=== PATIENT | male | born 1945 | race Caucasian/White ===

== ENCOUNTER → 2016-08-12 | Outpatient (CLI) | payer BC ==
[~2016-08-12] MED LIST: ATOR-54 PO; CALC12502 PO; CARB200T3 PO; CHOL400C7 PO; FISHOIL PO; MULTTAB58 PO
[2016-08-12 09:43] LABS: BASO % 0.3 %; BASO ABS # 0.02 K/uL (0-0.2); COMPLETE YES; EOS % 2.6 %; HEMATOCRIT 42.5 % (42-52); IG% 0.5 %; LYMPH % 32.3 %; LYMPH ABS # 2.02 K/uL (1.2-3.4); MEAN CORPUSCULAR HEMOGLOBIN 32.7 pg (25-34); MEAN CORPUSCULAR HGB CONC 34.8 g/dl (32-36); MEAN PLATELET VOLUME 10.1 fL (7.4-10.4); MONO % 7.8 %; NEUT % 56.5 %; PLATELET COUNT 191 K/uL (130-400); RED BLOOD COUNT 4.52 M/uL (4.7-6.1); WHITE BLOOD COUNT 6.26 K/uL (4.8-10.8)
[2016-08-12 10:10] LABS: ESTIMATED AVERAGE GLUCOSE 108 mg/dl; HA1C FLAG Normal (Normal)
[2016-08-12 10:16] LABS: ALT/SGPT 37 U/L (12-78); AST/SGOT 14 U/L (15-37); BLOOD UREA NITROGEN 18 mg/dl (7-18); BUN/CREATININE RATIO 12.7 (10-20); CALCIUM 8.8 mg/dl (8.5-10.1); CARBON DIOXIDE 30 mmol/L (21-32); CHLORIDE 107 mmol/L (98-107); GLUCOSE 91 mg/dl (70-99); SODIUM 142 mmol/L (136-145); URIC ACID 7.2 mg/dl (2.6-7.2)
[2016-08-12 10:19] LABS: CHOLESTEROL 159 mg/dl (0-200); HDL CHOLESTEROL 40 mg/dl; LDL CHOLESTEROL CALCULATED 82 mg/dl; TRIGLYCERIDES 185 mg/dl (0-150); VERY LOW DENSITY LIPOPROT CALC 37 mg/dl
== END | disposition home or self-care (01) ==
LOC: C.LAB1850 08:07
PROVIDERS: ATTEND Internal Medicine
DX: M10.9 Gout, unspecified (principal); R73.9 Hyperglycemia, unspecified; G35 Multiple sclerosis; E78.5 Hyperlipidemia, unspecified

== ENCOUNTER → 2017-07-18 | Outpatient (CLI) | payer BC ==
--- NOTE | 2017-07-18 12:27 | DIAGNOSTIC IMAGING REPORT ---
VIDEO SWALLOW HISTORY: Dysphagia G35 TECHNIQUE: Video fluoroscopic evaluation of swallowing was performed in the AP and lateral projections by the speech pathology staff. The patient is fed nectar-thick and thin liquid barium, a barium coated wafer, and barium pudding. FLUOROSCOPY TIME: 1.9 minutes. COMPARISON STUDY: None. FINDINGS: There is normal hyoid excursion and epiglottic deflection. No significant penetration or aspiration identified. Swallowing function is within normal limits. Moderate delay in initiation of the swallowing function. IMPRESSION: 1. No aspiration identified. 2. Please see the speech pathologist report for detailed findings and recommendations. The above report was generated using voice recognition software. It may contain grammatical, syntax or spelling errors. Electronically signed by: Sarthak Pruitt M.D. 07/18/2017 12:26 PM Dictated Date/Time: 07/18/2017 12:25 PM
--- NOTE | 2017-07-18 14:18 | SWALLOWING EVALUATION ---
HISTORY: This 72 year old man was referred for a video swallow study at [facility] in order to rule out aspiration and identify the safest consistencies for optimal oral intake. Patient reports he has episodes of coughing while eating/drinking food. He reports they do not occur all of the time, but when it happens, the coughing episode may last up to 5 minutes. PMH is significant for: Multiple Sclerosis, gastroparesis, and GERD. Current diet is regular. PROCEDURE: The patient was seen in the Radiology Department of [facility] for the VFSS. Cursory examination of the oral cavity revealed the patient to have upper and lower dentition in good condition. Movement of the articulators was mildly weak as evidenced by very mild dysarthria of speech. ROM was wnl. The patient was seated upright on a stool and was viewed in both the Anterior-Posterior (A-P) and Lateral planes. Volitional phonation exercises completed in the A-P plane revealed bilateral vocal fold movement. Vocal intensity was wnl. In the lateral plane, the patient was given the following boluses: 1 tsp. thin liquid barium x 2, single swallow thin liquid barium self-presented from a cup, sequential swallows of thin liquid barium self-presented from a straw, 1 tsp. nectar-thick liquid barium, single swallow nectar-thick liquid barium self-presented from a cup, 1 tsp. barium pudding, and 1 club cracker coated in barium pudding. The patient was then repositioned into the A-P plane and given the following boluses: 1 tsp. nectar thick barium and 1 tsp. barium pudding. RESULTS: Oral Stage: Lip closure was adequate. The patient was able to maintain a cohesive liquid bolus in the oral cavity during the liquid bolus hold task. Mastication was mildly slow. Lingual motion for bolus transport was also noted to be slow. There was retention lining the tongue and palate after the initial swallow. The initiation of the pharyngeal swallow was delayed occurred when the bolus head reached the pyriforms. Pharyngeal Stage: Soft palate elevation was complete. Laryngeal elevation revealed partial superior movement of the thyroid cartilage and partial approximation of the arytenoids to the epiglottic base. Anterior hyoid excursion was partially reduced and epiglottic deflection was complete. Laryngeal vestibular closure was complete. The pharyngeal stripping wave was present yet diminished. Pharyngeal contraction was complete. There was complete distention and duration of the opening to the pharyngoesophageal segment (PES). Tongue base retraction was partially reduced with a narrow column of contrast located between the tongue base and pharyngeal wall during the swallow. There was retention located in the valleculae and pyriforms after the swallow. There was evidence of minimal laryngeal penetration with thin liquids, otherwise there was no evidence for aspiration during this study. Mild retention that remained in the valleculae with solids cleared with a second swallow. No other difficulty identified. Esophageal stage: There was complete esophageal clearance. SUMMARY/RECOMMENDATIONS: This patient presents with mild mumtaz-pharyngeal dysphagia. The following is recommended: 1. Regular diet, thin liquids. 2. Aspiration precautions. Straws OK. Fully upright for meals and for 30 minutes after meals. Do not lay flat, elevate head of the bed to at least 30 degrees at all time, to include while sleeping (due to known GERD). 3. Safe swallow strategies: Alternate solids and liquids. Double swallow as needed with solids. A summary of the results and recommendations was discussed with the patient and his spouse (with his permission) with verbal understanding. Thank you for referral of this patient. Please contact me at if any additional information is needed.
== END | disposition home or self-care (01) ==
LOC: C.RAD 11:13
PROVIDERS: ATTEND Psychiatry & Neurology Neurology
DX: G35 Multiple sclerosis (principal)

== ENCOUNTER → 2017-08-17 | Outpatient (CLI) | payer BC ==
--- NOTE | 2017-08-17 12:35 | DIAGNOSTIC IMAGING REPORT ---
TWO VIEW CHEST CLINICAL HISTORY: Cough. FINDINGS: PA and lateral chest radiographs are obtained. No prior studies are available for comparison at the time of dictation. The PA view is degraded by patient rotation. The heart is top normal for projection. The pulmonary vasculature is noncongested. Nonspecific interstitial thickening is likely chronic. Bibasilar opacities likely represent atelectasis. The lungs are otherwise clear. No pleural effusion or pneumothorax is seen. The skeletal structures are osteopenic. The bony thorax appears intact. IMPRESSION: Bibasilar opacities likely represent atelectasis. Clinical correlation will be required. Electronically signed by: Rock Driver M.D. 08/17/2017 12:33 PM Dictated Date/Time: 08/17/2017 12:32 PM
[2017-08-17 12:44] LABS: HEMOGLOBIN A1C 5.4 % (4.5-5.6)
[2017-08-17 12:56] LABS: ALT/SGPT 29 U/L (12-78); AST/SGOT 18 U/L (15-37); BLOOD UREA NITROGEN 13 mg/dl (7-18); CALCIUM 8.7 mg/dl (8.5-10.1); CARBON DIOXIDE 26 mmol/L (21-32); CREATININE 1.28 mg/dl (0.60-1.40); GLUCOSE 97 mg/dl (70-99); POTASSIUM 3.9 mmol/L (3.5-5.1); SODIUM 138 mmol/L (136-145)
[2017-08-17 12:59] LABS: CHOLESTEROL 170 mg/dl (0-200); LDL CHOLESTEROL CALCULATED 91 mg/dl
--- NOTE | 2017-08-17 13:05 | DIAGNOSTIC IMAGING REPORT ---
CERVICAL SPINE 3 VIEWS CLINICAL HISTORY: Neck pain. FINDINGS: AP, lateral, and odontoid views of the cervical spine are correlated with CT scan of cervical spine dated 02/19/2012. The skeletal structures are osteopenic. There is no radiographic evidence of fracture or subluxation. Vertebral body height and alignment are maintained throughout the cervical spine. There is straightening of the cervical lordosis. Near complete bony fusion is seen at C5-C6. Anterior osteophytes are seen throughout. The spinous processes appear intact. The odontoid process and lateral masses appear intact as seen on the open-mouth view. The atlantodental articulation is grossly maintained noting productive degenerative change. Advanced disc space narrowing is seen at C3-C4, C5-C6, and C6-C7. Moderate to advanced disc space narrowing is seen at the remaining cervical levels. Posterior disc osteophyte complexes at C2-C3, C3-C4, C4-C5, and C6-C7 likely contribute to multilevel acquired compromise of the central canal. The prevertebral soft tissues are within normal limits. Partially imaged apical lung parenchyma is grossly clear. IMPRESSION: 1. No acute bony abnormality is identified involving the cervical spine. 2. Osteopenia and spondylotic change as above. Dictated: 08/17/2017 12:33 PM Transcribed: 08/17/2017 1:05 PM [facility] Electronically signed by: Rock Driver M.D. 08/17/2017 1:07 PM Dictated Date/Time: 08/17/2017 12:33 PM
== END | disposition home or self-care (01) ==
LOC: C.RAD1850 11:07
PROVIDERS: ATTEND Internal Medicine
DX: R05 Cough (principal); R73.9 Hyperglycemia, unspecified; E78.5 Hyperlipidemia, unspecified

== ENCOUNTER 2023-08-30 08:49 | Observation (INO) ==
--- NOTE | 2023-08-15 12:19 | PAT Medication Instructions ---
Medication Instructions Date of Service August 15, 2023 Home Medications Medication Instructions Recorded meloxicam 7.5 mg tablet 7.5 mg PO DAILY PRN gout #30 tabs 09/09/21 indomethacin 25 mg capsule 25 mg PO TID PRN gout #20 caps 09/14/21 betamethasone dipropionate 0.05 % 1 applic topical BID PRN skin 12/16/22 topical cream irritation #135 grams fluocinonide 0.1 % topical cream 1 applic topical BID #120 grams 04/14/23 atorvastatin 20 mg tablet 20 mg PO HS #90 tabs 06/05/23 meloxicam 7.5 mg tablet 7.5 mg PO DAILY PRN indomethacin 25 mg capsule 25 mg PO TID PRN betamethasone dipropionate 0.05 % topical cream 1 applic topical BID PRN fluocinonide 0.1 % topical cream 1 applic topical BID atorvastatin 20 mg tablet 20 mg PO HS carbamazepine 200 mg tablet (Tegretol) 200 mg PO QID cholecalciferol (vitamin D3) 125 mcg (5,000 unit) tablet (Vitamin D3) 125 mcg PO QAM cyanocobalamin (vitamin B-12) 1,000 mcg tablet (Vitamin B-12) 1,000 mcg PO QAM lutein 20 mg capsule 20 mg PO QAM ASK your surgeon for instructions meloxicam 7.5 mg tablet 7.5 mg PO DAILY PRN indomethacin 25 mg capsule 25 mg PO TID PRN STOP taking 2 weeks before surgery (or as soon as possible if surgery is within 2 weeks) lutein 20 mg capsule 20 mg PO QAM STOP taking 24 hours before surgery betamethasone dipropionate 0.05 % topical cream 1 applic topical BID PRN fluocinonide 0.1 % topical cream 1 applic topical BID DO NOT take the morning of surgery cholecalciferol (vitamin D3) 125 mcg (5,000 unit) tablet (Vitamin D3) 125 mcg PO QAM cyanocobalamin (vitamin B-12) 1,000 mcg tablet Take morning of surgery With a small sip of water, OTHERWISE NOTHING TO EAT OR DRINK AFTER MIDNIGHT: carbamazepine 200 mg tablet (Tegretol) 200 mg PO QID Take evening before surgery atorvastatin 20 mg tablet 20 mg PO HS carbamazepine 200 mg tablet (Tegretol) 200 mg PO QID Other Notes If you have any questions please call us at [phone] or [phone] or [phone] or [phone]
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
[~2023-08-30 08:49] MED LIST changes: -ATOR-54 PO; -CALC12502 PO; -CARB200T3 PO; -CHOL400C7 PO; -FISHOIL PO; -MULTTAB58 PO; +ROPIVACAINE 0.5% 5 MG/ML 30 ML VIAL ONE
--- NOTE | 2023-08-30 08:55 | History & Physical Bridge Note ---
Date of Service August 30, 2023 History & Physical Bridge Note I have examined the patient, reviewed the History & Physical and in the interval since the performance of the History & Physical I have noted the following changes of clinical significance: no changes noted
[2023-08-30] MEDS: ACETAMINOPHEN 500 MG TAB PO SCH ×2 (09:49→14:44)
[2023-08-30] MEDS: METOCLOPRAMIDE HCL 10 MG TABLET PO SCH (09:49)
[2023-08-30] MEDS: FAMOTIDINE 20 MG TAB PO SCH (09:49)
[2023-08-30] MEDS: CeleBREX 200 MG CAP PO SCH (09:49)
[2023-08-30] MEDS: dexAMETHasone**PF** 10 MG/ML VIAL IV SCH (09:50)
[2023-08-30] MEDS: LR 60ML/HR IV SCH (09:50)
[2023-08-30] MEDS: LR 15ML/HR IV SCH (09:50)
[2023-08-30] MEDS ORDERED: ONDANSETRON INJ 2 MG/ML 2 ML VIAL IV PRN ×2 (10:06→14:19)
[2023-08-30] MEDS ORDERED: ePHEDrine sulfate 50 MG/ML AMP IV PRN (10:06)
[2023-08-30] MEDS ORDERED: ATROPINE SULFATE 0.1 MG/ML 10ML SYR IV PRN (10:06)
[2023-08-30] MEDS ORDERED: MIDAZOLAM HCL 1 MG/ML 2ML VIAL ONE (10:17)
[2023-08-30] MEDS ORDERED: fentaNYL citrate PF 100 MCG/2 ML VIAL ONE ×2 (10:17→12:01)
[2023-08-30] MEDS ORDERED: PROPOFOL IV EMULSION 10 MG/ML 20 ML VIAL IV ONE (10:34)
[2023-08-30] MEDS ORDERED: ONDANSETRON INJ 2 MG/ML 2 ML VIAL ONE (10:34)
[2023-08-30] MEDS: ceFAZolin 2000MG 2,000 MG/15 ML SYR IV SCH ×2 (11:15→17:45)
[2023-08-30] MEDS ORDERED: ROCURONIUM BROMIDE 10 MG/ML 5 ML VIAL IV ONE (11:27)
[2023-08-30] MEDS: ROPIV 0.5% 246mg, Ketorolac 30mg, EPINEPHrine 0.5mg in NSS INFIL SCH (12:21)
[2023-08-30] MEDS: TRANEXAMIC ACID 1,000 MG **IV Intra-op IV SCH (12:22)
[2023-08-30] MEDS ORDERED: SUGAMMADEX SODIUM 200 MG/2 ML VIAL IV ONE (12:52)
--- NOTE | 2023-08-30 13:04 | Operative Report ---
[facility] Post Operative Report Pre & Post Diagnosis Operation Date: 08/30/23 10:40 Pre-Op Diagnosis: Left Knee Degenerative Joint Disease Post-Op Diagnosis: Left Knee Degenerative Joint Disease I identified the patient and participated in the time-out.: Yes Procedure Operation Date: 08/30/23 10:40 Actual Procedures p Left Total Knee Arthroplasty(Left) - Ming Chahal MD Surgeon Ming Chahal MD Hand Ii Blocker Candelario Palafox PA-C Estimated Blood Loss 50 Findings Consistent with Post-Op Diagnosis Operative findings revealed advanced grade 4 [id number] disease of the entire lateral compartment with eburnation of the lateral femoral condyle lateral to plateau. Moderate sized joint effusion. Valgus deformity to his knee. He did have some grade 4 changes body in the medial and patellofemoral compartments. Specimens Left knee sent for pathology. 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 Over the years things have gradually progressed. X-rays show progressive arthritis. He has been through extensive conservative treatment occluding injections and therapy without adequate relief. He elected proceed with total knee arthroplasty. I did explain to him that the results of this procedure in someone with his MS will be less predictable and he is fully aware that. Description of Procedure Operative implants consists of: 1 Biomet Vanguard size 67.5 left posterior stabilized femoral component. 2. Biomet size 75 tibial tray. 3. 10 mm PS plus insert. 4. 31 x 8 all poly patella. The patient was taken the op room, identified, placed on the operating table in the supine position. All contact areas were appropriately padded. IV antibiotics by anesthesia team. A adductor canal block had provided in the holding area. A general anesthetic was implemented due to his history of MS. ALS lactate was then placed. Left lower extremities then prepped and draped in usual sterile fashion. The left leg was elevated exsanguinated with use of an Esmarch and a turn was placed at 300 mmHg. An anterior approach to the left knee was then performed to longitudinal incision centered over the patella. Sharp dissection Through subcutaneous tissue down to the extensor mechanism. A medial parapatellar arthrotomy incision was made. Some subperiosteal dissection was carried out medially. The fat pad was dissected from the patella tendon. A lateral patellofemoral ligament was released. Patella subluxated laterally and the knee was flexed. The osteophytes taken distal femur. The ACL PCL were then released from the distal femur and the tibia subluxated anteriorly. The external tibial alignment jig was then placed in the anterior face of the tibia and adjusted 12 mm medially. Proximal tibial cut was made to move out to 2 mm of bone from the medial side. The tibia sized to a size 75. Attention drawn the femur. The distal femur therapy with a sharp drill. Intramedullary canal was suction. A left 5 degree valgus cutting guide was placed for the distal femoral cutting block was pinned in place. Distal femoral cut was made to take an additional 3 mm of distal femur. The femur was then sized to a size 67.5. The AP cutting block was pinned parallel to the epicondylar axis which is 5 degrees of external rotation. Anterior cut, anterior chamfer, posterior, posterior chamfer cuts were made. The box cutting guide was placed and just light box cut was made. The knee was flexed. The remnants of the medial and lateral menisci were excised. The osteophytes were taken off the posterior aspect of the femur. A trial femoral component was placed. The tibial tray was pinned in maximum external rotation and the joint standpoint use great defect in the proximal tibia for the tibial tray. The knee was then trialed and the 10 mm insert fit most appropriately. He there was just a slight bit of laxity in extension so I elected to use a PS plus insert due to his complaints of instability preoperatively. Attention drawn the patella. The patella was cleared of all soft tissue. Patella thickness measured 23 mm in thickness was cut down to 14. Was sized to a size 31 patella. The lug holes were drilled for 31 patella. The lateral osteophytes removed. Patella button was placed. Knee was taken through range of motion patella tracked nicely with no thumbs test. Attention turned to placing the permanent components. All trial components were removed. Bone plug was placed in the distal femur limit blood loss. A double batch of Palacos G cement was mixed. BiomMovidiusguard size 67.5 left posterior by femoral component, size 75 tibial tray, a 10 mm PS plus insert, and a 31 x 8 all poly patella then cemented in place. The knee was brought out into full extension until cement hardened. Final symmetric exam performed. The pericapsular tissues were injected with a total of 100 cc of orthopedic joint mixed. The patient did receive 1 g of tranexamic acid. The tourniquet was then let down for final tourniquet time of 59 minutes. Hemostasis assured with electrocautery. The extensor mechanism then closed the combination of 1 PDS suture and a 1 Vicryl suture in a [id number] fashion. The extensor mechanism checked found to be intact and subcutaneous tissue was then closed with 2 Dexon suture buried fashion skin was closed skin doe. Leg was then cleaned and dried a sterile dressing with Xeroform, 4 fours, sterile cast padding, Darell bandage were applied. The patient was then transferred to the recovery room in stable condition. The patient tolerated the procedure well and there were no complications. Candelario Palafox, my physician speech pathology assistant, was present for the entire procedure. His assistance was essential and required for appropriate patient positioning, prepping and draping, surgical exposure, performing the technical details of the operation, placement the implants, closure of the wound, and placement of the sterile bandage. I attest to the content of the Intraoperative Record and any orders documented therein. Any exceptions are noted below.
[2023-08-30] MEDS: fentaNYL citrate PF 100 MCG/2 ML VIAL IV PRN (13:18)
[2023-08-30] MEDS: HYDROmorphone INJ 1 MG/ML SYRINGE IV PRN (13:28)
--- NOTE | 2023-08-30 13:36 | XRay Report ---
XR knee LT 1 or 2V routine CLINICAL HISTORY: Postoperative evaluation. COMPARISON: Left knee radiographs May 30, 2023. FINDINGS: Alignment of the total left knee arthroplasty is anatomic. There is no periprosthetic frac ture or unexpected radiopaque foreign body. There are skin doe. IMPRESSION: Expected findings following total left knee arthroplasty. ACT 112: Negative or not required by law. Electronically signed by: Damien Bishop M.D. 08/30/2023 1:35 PM
--- NOTE | 2023-08-30 13:56 | Anesthesiology Progress Note ---
Date of Service August 30, 2023 Anesthesia Post Procedure Vital Signs Vital Signs: Temp Pulse Pulse Resp BP BP Pulse Ox 08/30/23 13:45 81 18 160/82 H 94 08/30/23 13:35 78 18 164/74 H 94 08/30/23 13:25 74 16 171/80 H 95 08/30/23 13:15 76 20 164/76 H 96 08/30/23 13:05 36.1 C L 79 20 174/84 H 96 08/30/23 09:20 36.7 C 68 20 180/93 H 96 O2 Del Method O2 Flow Rate 08/30/23 13:45 Nasal Cannula 2 08/30/23 13:35 Oxymask 4 08/30/23 13:25 Oxymask 4 08/30/23 13:15 Oxymask 4 08/30/23 13:05 Oxymask 6 08/30/23 09:20 Room Air Pain Intensity Left Knee: Pain Intensity: 5 Transfer of Care Handoff Completed per policy Notes Mental Status: alert / awake / arousable and participated in evaluation Patient Amnestic to Procedure: Yes Nausea / Vomiting: adequately controlled Pain: adequately controlled Airway Patency, RR, SpO2: stable & adequate BP & HR: stable & adequate Hydration State: stable & adequate Anesthetic Complications: no major complications apparent and Pt Satisfied with anesthetic care
[2023-08-30] MEDS ORDERED: METOCLOPRAMIDE HCL INJ 5 MG/ML 2 ML VIAL IV PRN (14:19)
[2023-08-30] MEDS ORDERED: MAGNESIUM HYDROXIDE SUSP 30 ML UDC PO PRN (14:19)
[2023-08-30] MEDS ORDERED: TAMSULOSIN HCL 0.4 MG CAP PO PRN (14:19)
[2023-08-30] MEDS ORDERED: ALUMINUM/MAGNESIUM SUSP 30 ML UDC PO PRN (14:19)
[2023-08-30] MEDS ORDERED: NALOXONE HCL 0.4 MG/1 ML VIAL/CARP IV PRN (14:19)
[2023-08-30] MEDS ORDERED: HYDROmorphone INJ 0.5 MG/0.5 ML SYR IV PRN (14:19)
[2023-08-30] MEDS ORDERED: bisacodyL 10 MG SUPP PR PRN (14:19)
[2023-08-30] MEDS: ORTHO JOINT ANESTHETIC ONE (14:32)
[2023-08-30] MEDS ORDERED: TRIAMCINOLONE ACET 0.5% CR 15 GM TUBE EXT PRN (14:38)
[2023-08-30] MEDS: SODIUM CHLORIDE 0.9% 1,000 ML IV SCH (14:42)
[2023-08-30] MEDS: KETOROLAC TROMETHAMINE 15 MG/ML VIAL IV SCH (14:44)
[2023-08-30] MEDS: carBAMazepine 200 MG TABLET PO SCH ×2 (15:20→20:47)
[2023-08-30] MEDS ORDERED: Nursing to Pharmacy Communication SCH (16:00)
[2023-08-30] MEDS: ASCORBIC ACID 500 MG TAB PO SCH (16:12)
[2023-08-30] MEDS: TRANEXAMIC ACID / 0.7% NACL 1,000 MG/100 ML BAG IV SCH (17:45)
[2023-08-30] MEDS: SENNA 8.6 MG TAB PO SCH (20:45)
[2023-08-30] MEDS: ATORVASTATIN 20 MG TAB PO SCH (20:45)
[2023-08-30] MEDS: CLOBETASOL PROPIONATE 0.05% CREAM 15 GM TUBE EXT SCH (20:46)
[2023-08-30] MEDS: DOCUSATE SODIUM 100 MG CAP PO SCH (20:47)
[2023-08-30] MEDS: ASPIRIN 81 MG ECTAB PO SCH (20:47)
[2023-08-31 06:35] LABS: Hematocrit (blood only) 32.4 % (42.0-52.0); Hemoglobin 10.7 g/dl (14.0-18.0); Mean Corpuscular Hemoglobin 31.3 pg (25.0-34.0); Mean Corpuscular Volume 94.7 fL (80.0-100.0); Mean Platelet Volume 9.8 fL (9.4-12.4); Platelet Count 191 K/uL (130-400); RDW Coefficient of Variation 13.4 % (11.5-14.5); RDW Standard Deviation 46.8 fL (36.4-46.3); Red Blood Count 3.42 M/uL (4.70-6.10); White Blood Count 10.28 K/ul (4.8-10.8)
[2023-08-31 07:01] LABS: Calcium 8.6 mg/dl (8.6-10.3); Creatinine Clr Calc Pharmacy 52.1 ml/min; Est GFR (African American) 63.5 ml/min; Est GFR (Non-African American) 54.8 ml/min; Potassium 3.8 mmol/L (3.5-5.1)
[2023-08-31] MEDS: oxyCODONE HCL IR 5 MG TAB (IMMEDIATE RELEASE) PO PRN (08:08)
[2023-08-31] MEDS: CHOLECALCIFEROL 125 MCG (5,000 UNITS) TAB PO SCH (08:09)
[2023-08-31] MEDS: MULTIVITAMIN TAB PO SCH (08:10)
[2023-08-31] MEDS: dexAMETHasone 10 MG in SYRINGE 0 ML IV SCH (08:12)
[2023-08-31] MEDS ORDERED: NON-FORMULARY MEDICATION (Lutein 20 mg Capsule) PO SCH (09:00)
--- NOTE | 2023-08-31 10:50 | Orthopedic Progress Note ---
Date of Service August 31, 2023 Assessment & Plan (1) Status post left knee replacement: Overall, he is doing quite well today with good pain control to the left knee. He participated well this morning with physical therapy work on ambulation and range of motion exercises. He is on aspirin for DVT prophylaxis. He can be discharged later this morning pending formal physical therapy evaluation recommendations. He is currently a resident at [facility] and notes that he is going to return there upon discharge within house PT/OT. Case management is currently on board of trying to get him out of here today. He is orthopedically stable for discharge once confirmation is obtained that [facility] is able to accept him back today. He will follow-up with Dr. Chahal in 2 weeks for postoperative management. Subjective . Yoshi was seen and evaluated this morning resting comfortably in no apparent distress. He notes that his pain is well-controlled to the left knee today. He notes that he just finished with physical therapy and was able to do ambulation and range of motion exercises with him. He notes that he has been up and out of bed with no significant issues. He denies any other concerns today. Review of Systems All systems reviewed & are unremarkable except as noted in HPI & below. Physical Exam . On physical examination of the left knee, dressings are clean, dry, intact. His leg is out in full extension. He has active plantarflexion dorsiflexion of the left ankle. +2 DP and PT pulses. Less than 2-second capillary refill. Normal sensation. Neurovascular intact. Results & Data Results & Data Laboratory Results . Diagnostic Findings . Postoperative x-rays of the left knee show prosthesis to be in anatomical alignment with no signs of fracture complication or loosening. PG Care Time/CCT Total # of Minutes Spent Total Time Spent with Patient: Total time spent is greater than 50% in coordination of care (as documented) at patient's floor/unit and/or counseling patient: Coding Level of Care Code 58050 Post Operative Follow-Up Diagnoses Status post left knee replacement Z96.652
--- NOTE | 2023-08-31 10:52 | Discharge Summary ---
Date of Service August 31, 2023 Principal Diagnosis Same as "Discharge Diagnosis" noted below under Discharge Instructions. Discharge Exam . On physical examination of the left knee, dressings are clean, dry, intact. His leg is out in full extension. He has active plantarflexion dorsiflexion of the left ankle. +2 DP and PT pulses. Less than 2-second capillary refill. Normal sensation. Neurovascular intact. Discharge Data Procedures Performed Operation Date: 08/30/23 10:40 Actual Procedures p Left Total Knee Arthroplasty(Left) - Mnig Chahal MD Ordered Studies 08/30/23 05:00 US - OR guided needle placemen Routine Hospital Course (1) Status post left knee replacement: On August 30, 2023 Yoshi arrived at [facility] underwent a left total knee arthroplasty performed by Dr. Chahal with no complications. He had a general anesthetic. Postoperatively, he was started on aspirin for DVT prophylaxis and transferred to the general orthopedic floor in stable condition. His hospital course was uneventful. On postoperative day #1, his vital signs are stable and his pain is well-controlled. He participated well with physical therapy working on ambulation and range of motion exercises. He was then discharged to [facility] in stable condition. He will follow-up with Dr. Chahal in 2 weeks for postoperative management. PG Care Time/CCT Total # of Minutes Spent Total Time Spent with Patient: Total time spent is greater than 50% in coordination of care (as documented) at patient's floor/unit and/or counseling patient: Discharge Plan Discharge Items Patient Disposition: Transfer [facility] Reason For Visit: Left Knee Degenerative Joint Disease Discharge Diagnosis: Left Knee Replacement Activity: Per Instructions section Weightbearing: Full weightbearing Non-emergency contact: Surgeon Call non-emergency contact if: you have any medication questions Follow-up/Referrals: ProBraxton MD [Primary Care Provider] - Diet: Regular Addtl Attending Provider Instructions: ACTIVITY RECOMMENDATIONS: Physical Therapy: * You will go to physical therapy three times each week for four to six weeks after your surgery in order to regain your knee range of motion and to retrain your knee to work properly. * It is just as important to make sure you are getting your knee perfectly straight as it is to regain your knee bend. * Taking a pain pill an hour before therapy can help you have a more productive and comfortable therapy session. Home Exercise: * You were shown a series of exercises (heel props, heel slides, etc.) in the hospital. Do these exercises three to four times each day including the exercises you were shown in physical therapy. Walking: * Get up and walk several times each day. For the first four weeks, try not to stand or walk for more than one hour at a time. If you do stand or walk for more than one hour, you will not hurt anything, but your knee and leg will likely swell. * As you feel comfortable, you may change from the walker or crutches to a cane and then to independent walking. MEDICATIONS: New Medicine: * You will likely be taking one or more of these medications: 1. Oxycodone - A quick and shorter-acting pain medication. Take one to two tablets every six hours to lessen your pain. 2. Aspirin - Thins your blood to lessen the chance of forming a blood clot. * The most common side effects of pain medicine and iron are nausea and constipation. If nausea or constipation is too much of a problem or if you have any questions about your new medicines or doses, call [facility] at . We will try to help you manage these issues. "VERY IMPORTANT TO READ AND REVIEW" Pain: * The immediate post-operative period after knee replacement surgery is often quite painful. * You are given a prescription for pain medicine. You should take it, as directed, when you need it, especially before physical therapy and before going to bed. Pain that interferes with sleep is very common and can last several months. * You will likely need pain medicine for the first four to six weeks. It will not stop all of the pain. The pain will lessen and as you feel better, you may change to milder pain medicine such as Tylenol. * The most common side effects of pain medicine are nausea and constipation, so don't take more than you need. SPECIAL CARE INSTRUCTIONS: TEDs/Elastic Stockings: * The white elastic stockings help limit swelling and prevent blood clots from forming in your legs. The more you wear them, the more they work. * Wear them for six weeks after knee replacement surgery and four weeks after partial knee replacement. Incision Site Care: * Remove dressing postoperative day 2 and then shower. Keep direct shower pressure off the incision site. * After showering, cover doe with dry gauze and change daily or more frequently if the dressing is getting saturated with drainage. * Use the ZAC stockings to hold dressing in place. DO NOT apply tape on the skin. * May completely stop using bandage if wound is dry and no drainage * Eloy are removed between 2 and 3 weeks post-op. If your follow-up appointment is made before 2 weeks, please have your appointment re- scheduled. It is too early to remove the doe. Prevention of Infection: * Take antibiotics one hour before any dental cleaning, dental work, urological procedure, gastrointestinal procedure or any invasive surgery in order to prevent your new joint from getting infected. * You may get the antibiotics from the doctor performing the procedure or you may call our office at [phone] before and we will call in a prescription to the pharmacy of your choice. Things to Watch For: * Drainage from the incision site that occurs more than one week after your surgery. * Severely increased knee/leg pain or swelling. * Increased redness at the incision site. * Fever above 102 degrees Fahrenheit. * Unusual chest pain or shortness of breath. * Unusual pain or burning with urination. Call [facility] at [phone] with any of the above problems or if you have any questions about your medicines or recovery. FOLLOW UP VISIT: Make an appointment to see your doctor for approximately two weeks after surgery for a progress check and staple removal by calling the office at [phone]. Pending Studies at Discharge: No Stand-Alone Forms: My [facility] Skilled Items Patient informed of condition?: Yes DNR: No Discharge Level of Care: Skilled Communicable Disease: No Discharge Prognosis: Improving Lines: Peripheral IV Urinary Catheter: No Medications and DC Order Prescriptions: New acetaminophen [Tylenol Extra Strength] 500 mg Tablet 1,000 mg PO Q8 30 Days Qty: 180 0RF Rx Instructions: Take 3 times per day to lessen pain. aspirin 81 mg Tablet,Delayed Release (Dr/Ec) 81 mg PO BID 45 Days Qty: 90 0RF Rx Instructions: Take to prevent blood clots. oxycodone 5 mg Tablet 5 - 10 mg PO Q6H PRN (Reason: pain) Qty: 40 0RF Rx Instructions: Take as needed to lessen pain. Continued meloxicam 7.5 mg tablet 7.5 mg PO DAILY PRN (Reason: gout) Qty: 30 3RF indomethacin 25 mg capsule 25 mg PO TID PRN (Reason: gout) Qty: 20 0RF Rx Instructions: administer with food or milk betamethasone dipropionate 0.05 % cream 1 applic topical BID PRN (Reason: skin irritation) Qty: 135 2RF fluocinonide 0.1 % cream 1 applic topical BID Qty: 120 0RF atorvastatin 20 mg tablet 20 mg PO HS Qty: 90 3RF (DME) Wheeled Walker [facility] See Rx Instructions .MEDSUPPLY Qty: 1 0RF Rx Instructions: As directed lutein 20 mg Capsule 20 mg PO QAM Rx Instructions: give with meal/snack cholecalciferol (vitamin D3) [Vitamin D3] 125 mcg (5,000 unit) Tablet 125 mcg PO QAM carbamazepine [Tegretol] 200 mg tablet 200 mg PO QID Discharge Orders: Discharge Order (Routine); Ordered 08/31/23 Ordered By: Isiah Garcia Admission Data Admit Date/Time: 08/30/23 13:03 Attending Provider: Ming Chahal Admit Provider: Ming Chahal Primary Care Provider: Braxton Valentine
== END 2023-08-31 14:22 | DRG 470 ==
LOC: ASU 08:49 → MERGE 09:05 → 3E 13:03 → INTOOBSV 13:03